=== PATIENT | male | born 1940 | race Caucasian/White ===

== ENCOUNTER → 2021-07-19 13:27 | Outpatient (BNVA) | payer MEDICARE, SELFPAY | PROVIDERS: Family Provider Family Medicine; PCP Family Medicine; Visit Provider Nurse Practitioner Family | DX: Z11.52 Encounter for screening for COVID-19 (principal); Z20.822 Contact with and (suspected) exposure to COVID-19 | CPT/HCPCS: 87635 ==

== ENCOUNTER 2021-12-09 00:37 | Emergency (ER) | payer MEDICARE, SELFPAY ==
[2021-12-09 00:44] VITALS: BP 133/75; PULSE 75; RESP 18; TEMP 37.1; O2SAT 98; BMI 27.4
--- NOTE | 2021-12-09 01:03 | W.ED.ABDPA2 ---
Documented by User: KEYA Medina 12/09/21 03:36 HPI - Abdominal Pain General: Chief Complaint: Abdominal Pain Stated Complaint: abd pains Time Seen by Provider: 12/09/21 01:02 History of Present Illness: 81-year-old male patient comes in today with complaints of abdominal pain and discomfort. Patient reports that he was riding his lawnmower this weekend and his abdomen started hurting afterwards. Since then he has had increasing pain and discomfort. Patient has a history of appendicitis with rupture when he was a child and since then he has had problems with an ileus/small bowel obstruction and/or diverticulosis. Patient comes in tonight for increased pain and discomfort. Patient did report his last bowel movement was today. Patient reports that he does pass gas. Patient states that his abdomen has become more distended though today and he is concerned that he is developing obstruction. Associated Symptoms: Reports nausea; Denies constipation, diarrhea, fever(s) and vomiting Review of Systems Const: Denies: fever(s) Card: Denies: chest pain Resp: Denies: dyspnea GI: Reports: abdominal pain and nausea; Denies: vomiting, diarrhea or constipation : Denies: difficulty urinating Skin/Breast: Denies: rash PFSH ED PFSH: Medical History History of irritable bowel syndrome HTN (hypertension) Surgical History History of appendectomy History of cataract extraction Family History Sister Cancer breast Social History Smoking and tobacco status: never smoked Second hand smoke exposure: No Alcohol intake: never Adopted: No Caregiver/support person: Yes Lives independently: Yes Household members: spouse Housing: House Marital status: service: No Current occupational status: retired Pets and animals: Yes Pets & animals: dog(s) History of recent travel: No Current gender identity: Male Special eri needs: No Physical Exam Const: COMMON NORMALS: alert HENMT: COMMON NORMALS: normocephalic HEAD & SCALP: normocephalic Resp: COMMON NORMALS: normal respiratory effort and clear to auscultation bilaterally AUSCULTATION: clear to auscultation bilaterally Cardio: COMMON NORMALS: regular rate RATE: regular rate GI: AUSCULTATION: Yes Hypoactive bowel sounds present PALPATION: Yes Tenderness to palpation present (GI) and Yes Other GI palpation findings present (Distended) PERCUSSION: tympanic to percussion : COMMON NORMALS: Yes no CVA tenderness BLADDER/KIDNEY EXAM: Yes no CVA tenderness Back/Pelvis: COMMON NORMALS: no CVA tenderness Extremity: COMMON NORMALS: no pedal edema Neuro: SENSORIUM/ORIENTATION: Yes alert Skin: COMMON NORMALS: no rashes or lesions noted GENERAL SKIN EXAM: no rashes or lesions noted Course Vital Signs: Vital signs: Vital Signs Temperature 98.2 F 12/09/21 05:50 Pulse Rate 90 12/09/21 05:50 Respiratory Rate 16 12/09/21 05:50 Blood Pressure 123/69 12/09/21 05:50 Pulse Oximetry 98 12/09/21 05:50 MDM - Abdominal Pain Medical Decision Making 81-year-old male patient comes in with abdominal pain and distention. Patient reports that he has a history of a ruptured appendix when he was young which caused a lot of adhesions to his bowel. He has had a couple episodes where his bowel has got twisted and he has had a NG tube placed. Patient was concerned that he may be developing this problem again. On exam patient's abdomen is distended bowel sounds were present. Patient did report a bowel movement today with passing of gas. Skin was warm and dry. Vital signs were normal. Differential diagnosis includes ileus, bowel obstruction, gastroenteritis, diverticulitis. CBC was unremarkable. CMP showed no significant change from prior exams. Patient was turned over to Dr. Dudley to await CT of the abdomen and pelvis report. Patient was given 1 L of IV fluids, 4 mg of ondansetron, and 4 mg of morphine and was resting well without any difficulty except for some mild desaturation while sleeping. Patient was placed on oxygen by nasal cannula to titrate to maintain saturation above 90%. Lab Data : 12/09/21 01:12 12/09/21 01:12 Labs/Radiology: Radiology Impressions Abdomen/Pelvis CT 12/09/21 01:10 IMPRESSION: Acute uncomplicated sigmoid diverticulitis. COMMENTS: Consistent with the [employer]'s Incidental Findings Committee white paper ([employer]iol 2018): Any incidental renal lesion less than 1 cm or classified as too small to characterize, or any incidental cystic renal lesion characterized as simple-appearing, is likely benign. No follow-up imaging is recommended for these lesions per consensus recommendations based on imaging criteria. Laboratory Results WBC 8.2 10^3/uL (4.0-10.0) 12/09/21 01:12 RBC 4.08 10^6/uL (4.1-5.3) L 12/09/21 01:12 Hgb 13.4 g/dL (11.7-16.6) 12/09/21 01:12 Hct 38.1 % (42.0-52.0) L 12/09/21 01:12 MCV 93.4 fl (80-94) 12/09/21 01:12 MCH 32.8 pg (28.0-34.0) 12/09/21 01:12 MCHC 35.2 g/dL (30.0-36.0) 12/09/21 01:12 RDW 12.1 % (12.1-15.1) 12/09/21 01:12 Plt Count 224 10^3/cmm (130-400) 12/09/21 01:12 MPV 9.7 fL (7.4-10.4) 12/09/21 01:12 Neut % (Auto) 70.2 % 12/09/21 01:12 Lymph % (Auto) 20.0 % 12/09/21 01:12 [place] % (Auto) 6.6 % 12/09/21 01:12 Eos % (Auto) 2.6 % 12/09/21 01:12 Baso % (Auto) 0.4 % 12/09/21 01:12 Neut # (Auto) 5.75 10^3/uL (1.8-7.7) 12/09/21 01:12 Lymph # (Auto) 1.6 10^3/uL (0.8-4.8) 12/09/21 01:12 [place] # (Auto) 0.5 10^3/uL (0.2-0.9) 12/09/21 01:12 Eos # (Auto) 0.2 10^3/uL (0.0-0.8) 12/09/21 01:12 Baso # (Auto) 0.0 10^3/uL (0.0-0.1) 12/09/21 01:12 Nucleated RBC % (auto) 0 % 12/09/21 01:12 Nucleated RBCs # 0.0 /100WBC 12/09/21 01:12 Sodium 140 mmol/L (136-145) 12/09/21 01:12 Potassium 3.8 mmol/L (3.5-5.1) 12/09/21 01:12 Chloride 104 mmol/L (98-107) 12/09/21 01:12 Carbon Dioxide 25 mmol/L (22-29) 12/09/21 01:12 Anion Gap 14.8 (5-19) 12/09/21 01:12 BUN 20 mg/dL (8-23) 12/09/21 01:12 Creatinine 1.3 mg/dL (0.7-1.2) H 12/09/21 01:12 GFR Calculation Not Reportable 12/09/21 01:12 Glucose 141 mg/dL (65-115) H 12/09/21 01:12 Calculated Osmolality 295 mOsm/kg (285-295) 12/09/21 01:12 Calcium 8.3 mg/dL (8.5-10.5) L 12/09/21 01:12 Total Bilirubin 0.4 mg/dL (0.15-1.2) 12/09/21 01:12 AST 14 U/L (0-40) 12/09/21 01:12 ALT 13 U/L (0-41) 12/09/21 01:12 Alkaline Phosphatase 81 IU/L (40-130) 12/09/21 01:12 Total Protein 6.7 g/dL (6.6-8.7) 12/09/21 01:12 Albumin 4.2 g/dL (3.5-5.2) 12/09/21 01:12 Globulin 2.5 g/dL (1.3-4.6) 12/09/21 01:12 Lipase 48 U/L (13-60) 12/09/21 01:12 Discharge Plan Discharge Patient Disposition: Home Clinical Impression: Abdominal pain, Diverticulitis Condition: Stable Prescriptions: New amoxicillin-pot clavulanate 875-125 mg tablet 1 tab PO BID Qty: 20 0RF ondansetron 4 mg tablet,disintegrating 4 mg PO Q8H PRN (Reason: nausea and vomiting) Qty: 15 0RF No Action albuterol sulfate [ProAir HFA] 90 mcg/actuation HFA aerosol inhaler 2 puff inhalation QID PRN (Reason: shortness of breath or wheezing) Qty: 8.5 3RF budesonide-formoterol [Symbicort] 160-4.5 mcg/actuation HFA aerosol inhaler 2 puff inhalation Q12H Qty: 10.2 3RF amlodipine 5 mg tablet 5 mg PO DAILY 0RF losartan 50 mg tablet 50 mg PO DAILY 0RF sertraline 25 mg tablet 25 mg PO DAILY 0RF dicyclomine 10 mg capsule 10 mg PO .prn 0RF pantoprazole 40 mg tablet,delayed release (DR/EC) 40 mg PO QDAY Qty: 30 5RF Discharge Orders: Discharge ED (Routine); Ordered 12/09/21 Ordered By: Cornelius Dudley Referrals: Jake Ochoa MD [Primary Care Provider] - Discharge Diet: Usual diet Discharge Activity: Increase activity as tolerated Patient Instructions: Diverticulitis (ED), Abdominal Pain (ED), Opioid Safety Activity Restrictions/Additional Instructions: Clear liquid diet until pain is resolved. Take medications as directed. Follow-up with primary care in 2 to 3 days for recheck. Return to emergency room for fever greater than 100.4, persistent vomiting, blood in vomit or stool. Sign Out Sign Out Data: Patient Sign Out occurred on 12/09/21 at 04:19. Patient's care was discussed, and care was transferred from to Cornelius Dudley MD. Coding Level of Care Code ED Cost Estimating Clerk for Chg Fwd Exam Comprehensive Documented by User: Cornelius Dudley MD 12/09/21 08:14 HPI - Abdominal Pain General: Chief Complaint: Abdominal Pain Stated Complaint: abd pains Time Seen by Provider: 12/09/21 01:02 [facility] ED PFSH: Medical History History of irritable bowel syndrome HTN (hypertension) Surgical History History of appendectomy History of cataract extraction Family History Sister Cancer breast Social History Smoking and tobacco status: never smoked Second hand smoke exposure: No Alcohol intake: never Adopted: No Caregiver/support person: Yes Lives independently: Yes Household members: spouse Housing: House Marital status: service: No Current occupational status: retired Pets and animals: Yes Pets & animals: dog(s) History of recent travel: No Current gender identity: Male Special eri needs: No Course Vital Signs: Vital signs: Vital Signs Temperature 98.2 F 12/09/21 05:50 Pulse Rate 90 12/09/21 05:50 Respiratory Rate 16 12/09/21 05:50 Blood Pressure 123/69 12/09/21 05:50 Pulse Oximetry 98 12/09/21 05:50 MDM - Abdominal Pain Medical Decision Making 81-year-old male patient comes in with abdominal pain and distention. Patient reports that he has a history of a ruptured appendix when he was young which caused a lot of adhesions to his bowel. He has had a couple episodes where his bowel has got twisted and he has had a NG tube placed. Patient was concerned that he may be developing this problem again. On exam patient's abdomen is distended bowel sounds were present. Patient did report a bowel movement today with passing of gas. Skin was warm and dry. Vital signs were normal. Differential diagnosis includes ileus, bowel obstruction, gastroenteritis, diverticulitis. CBC was unremarkable. CMP showed no significant change from prior exams. Patient was turned over to Dr. Dudley to await CT of the abdomen and pelvis report. Patient was given 1 L of IV fluids, 4 mg of ondansetron, and 4 mg of morphine and was resting well without any difficulty except for some mild desaturation while sleeping. Patient was placed on oxygen by nasal cannula to titrate to maintain saturation above 90%. Patient care discussed with Carlos So NP. I personally saw and evaluated the patient after I took over care. Reperformed smith portions of E/M. Overall patient feeling improved. CT scan results notable for simple diverticulitis. No evidence of sepsis or acute abdomen. Discussed possible disposition options including offering admission versus outpatient management with strict return precautions. Patient prefers outpatient management. He tolerated p.o. intake and first dose of antibiotics given here. I discussed prescriptions, follow-up plan, return precautions. Patient verbalized understanding felt safe for discharge. Cornelius Dudley MD Emergency Medicine Lab Data : 12/09/21 01:12 12/09/21 01:12 Labs/Radiology: Radiology Impressions Abdomen/Pelvis CT 12/09/21 01:10
--- NOTE | 2021-12-09 01:10 | CTR_ITS ---
PROCEDURE INFORMATION: Exam: CT Abdomen And Pelvis Without Contrast Exam date and time: 12/09/2021 1:33 AM Age: 81 years old Clinical indication: Nausea and vomiting; Abdominal pain; Generalized; Prior surgery; Surgery type: Appy; Patient HX: C/O diffuse abd pain with n/v. History of ibs. ; Additional info: Abd pain, probable sbo vs ileus TECHNIQUE: Imaging protocol: Computed tomography of the abdomen and pelvis without contrast. Radiation optimization: All CT scans at this facility use at least one of these dose optimization techniques: automated exposure control; mA and/or kV adjustment per patient size (includes targeted exams where dose is matched to clinical indication); or iterative reconstruction. COMPARISON: CR Chest 1 [place] [id number] 05/24/2019 5:15 PM RADIATION DOSE METRICS: Total DLP (mGy-cm): 1634.44 FINDINGS: Lungs: Calcified granulomas in the right lung. Liver: Subcentimeter low-density lesion in the left hepatic lobe is too small to characterize. Gallbladder and bile ducts: Normal. No calcified stones. No ductal dilation. Pancreas: Normal. No ductal dilation. Spleen: Calcified splenic granulomas. Adrenal glands: Normal. No mass. Kidneys and ureters: Coarse parenchymal calcification in the upper pole of the right kidney. Punctate nonobstructing left lower pole renal calculus. Bilateral renal cysts. No hydronephrosis. Stomach and bowel: No bowel obstruction. There are changes of acute sigmoid diverticulitis with some adjacent inflammation and tethering of a nearby small-bowel loop. Appendix: Appendectomy. Intraperitoneal space: Unremarkable. No free air. No significant fluid collection. Vasculature: Mild burden of atherosclerotic plaque in the abdominal aorta and branch vessels. No aneurysm. Lymph nodes: Unremarkable. No enlarged lymph nodes. Urinary bladder: Unremarkable as visualized. Reproductive: Prostatomegaly. Bones/joints: Unremarkable. No acute fracture. Soft tissues: Unremarkable. CT/CT abdomen pelvis wo con [id number] IMPRESSION: Acute uncomplicated sigmoid diverticulitis. COMMENTS: Consistent with the [employer]'s Incidental Findings Committee white paper ([employer] Radiol 2018): Any incidental renal lesion less than 1 cm or classified as too small to characterize, or any incidental cystic renal lesion characterized as simple-appearing, is likely benign. No follow-up imaging is recommended for these lesions per consensus recommendations based on imaging criteria.
[2021-12-09 01:19] VITALS: RESP 16
[2021-12-09] MEDS: morphine 4 mg/mL SDV 1 mL IVP (01:19)
[2021-12-09] MEDS: ondansetron 2 mg/ML SDV 2 mL 4 MG IVP ×2 (01:20→04:39)
[2021-12-09] MEDS: sodium chloride 0.9% 1,000 ML 999 ML IV (01:20)
[2021-12-09 01:27] LABS: Basophils % 0.4 %; Eosinophils # 0.2 10^3/uL (0.0-0.8); Eosinophils % 2.6 %; Hematocrit 38.1 % (42.0-52.0); Hemoglobin 13.4 g/dL (11.7-16.6); Lymphocytes # 1.6 10^3/uL (0.8-4.8); Mean Corpuscular HGB Conc 35.2 g/dL (30.0-36.0); Mean Corpuscular Hemoglobin 32.8 pg (28.0-34.0); Mean Corpuscular Volume 93.4 fl (80-94); Mean Platelet Volume 9.7 fL (7.4-10.4); Monocytes # 0.5 10^3/uL (0.2-0.9); Monocytes % 6.6 %; Neutrophils # 5.75 10^3/uL (1.8-7.7); Neutrophils % 70.2 %; Nucleated Red Blood Cells % 0 %; Platelet Count 224 10^3/cmm (130-400); Red Blood Count 4.08 10^6/uL (4.1-5.3); Red Cell Distribution Width 12.1 % (12.1-15.1); White Blood Count 8.2 10^3/uL (4.0-10.0)
[2021-12-09 01:44] LABS: Albumin Level 4.2 g/dL (3.5-5.2); Alkaline Phosphatase 81 IU/L (40-130); Anion Gap 14.8 (5-19); Aspartate Amino Transferase 14 U/L (0-40); Blood Urea Nitrogen 20 mg/dL (8-23); Calcium 8.3 mg/dL (8.5-10.5); Carbon Dioxide 25 mmol/L (22-29); Chloride 104 mmol/L (98-107); Globulin 2.5 g/dL (1.3-4.6); Glucose 141 mg/dL (65-115); Lipase 48 U/L (13-60); Osmolality Calculated 295 mOsm/kg (285-295); Potassium 3.8 mmol/L (3.5-5.1); Sodium 140 mmol/L (136-145); Total Bilirubin 0.4 mg/dL (0.15-1.2); Total Protein 6.7 g/dL (6.6-8.7)
[2021-12-09 01:55] LABS: Alanine Aminotransferase 13 U/L (0-41)
[2021-12-09 04:26] VITALS: BP 128/67; PULSE 81; RESP 16; O2SAT 95
[2021-12-09] MEDS: amoxicillin-clav 875-125 mg Tablet 1 TAB PO (04:39)
[2021-12-09 05:50] VITALS: BP 123/69; PULSE 90; RESP 16; TEMP 36.8; O2SAT 98
== END 2021-12-09 05:54 | disposition home or self-care (01) ==
PROVIDERS: Nurse Practitioner Family; Emergency Provider Emergency Medicine; PCP Family Medicine
DX: K57.32 Diverticulitis of large intestine without perforation or abscess without bleeding (principal); R11.0 Nausea; Z90.89 Acquired absence of other organs
CPT/HCPCS: 74176; 80053; 83690; 85025; 96361; 96374; 96375; 96376; 99284; J2270; J2405; J7030

== ENCOUNTER → 2022-08-15 12:31 | Outpatient (BNVA) | payer MEDICARE, SELFPAY | PROVIDERS: PCP Family Medicine; Visit Provider Family Medicine | DX: R10.9 Unspecified abdominal pain (principal); R19.00 Intra-abdominal and pelvic swelling, mass and lump, unspecified site; R60.9 Edema, unspecified; R35.0 Frequency of micturition; Z51.81 Encounter for therapeutic drug level monitoring; I10 Essential (primary) hypertension | CPT/HCPCS: 80053; 83880; 84153; 85025; 86141 ==

== ENCOUNTER 2022-12-18 14:43 | Emergency (ER) | payer MEDICARE, SELFPAY ==
[2022-12-18 14:49] VITALS: BP 139/75; PULSE 66; RESP 14; TEMP 36.4; O2SAT 98; BMI 27.4
[2022-12-18 15:57] LABS: Basophils % 0.4 %; Eosinophils # 0.3 10^3/uL (0.0-0.8); Eosinophils % 3.3 %; Hematocrit 43.1 % (42.0-52.0); Hemoglobin 14.4 g/dL (11.7-16.6); Lymphocytes # 1.6 10^3/uL (0.8-4.8); Lymphocytes % 19.4 %; Mean Corpuscular HGB Conc 33.4 g/dL (30.0-36.0); Mean Corpuscular Hemoglobin 32.2 pg (28.0-34.0); Mean Corpuscular Volume 96.4 fl (80-94); Mean Platelet Volume 9.6 fL (7.4-10.4); Monocytes # 0.7 10^3/uL (0.2-0.9); Monocytes % 8.4 %; Neutrophils # 5.51 10^3/uL (1.8-7.7); Neutrophils % 68.3 %; Nucleated Red Blood Cells % 0 %; Platelet Count 214 10^3/cmm (130-400); Red Blood Count 4.47 10^6/uL (4.1-5.3); Red Cell Distribution Width 12.5 % (12.1-15.1); White Blood Count 8.1 10^3/uL (4.0-10.0)
[2022-12-18 16:13] LABS: Add Urine Microscopic? YES; Bilirubin Urine 1+ (Negative); Blood Urine Neg (Negative); Glucose Urine UA Norm (Normal); Ketones Urine Negative (Negative); Leukocyte Esterase Urine Trace (Negative); Nitrate Urine Negative (Negative); Protein Urine Neg (Negative); Urine Appearance Clear (CLEAR); Urine Color Yellow (Yellow); Urobilinogen Urine Norm (Negative); pH Urine 5 (5-7)
[2022-12-18 16:14] LABS: Bacteria Urine TRACE /hpf; Mucus Urine 2+ /hpf; RBC Urine RARE /hpf (0-2); Squamous Epithelial Cell Urine 0-4 /hpf (0-5)
[2022-12-18 16:14] LABS: Lactic Sepsis W/Reflex 0.8 mmol/L (0.5-2.2)
[2022-12-18 16:15] LABS: Alanine Aminotransferase 9 U/L (0-41); Albumin Level 4.1 g/dL (3.5-5.2); Alkaline Phosphatase 77 U/L (40-130); Anion Gap 13.3 (5-19); Aspartate Amino Transferase 15 U/L (0-40); Blood Urea Nitrogen 19 mg/dL (8-23); Calcium 9.1 mg/dL (8.5-10.5); Carbon Dioxide 29 mmol/L (22-29); Chloride 101 mmol/L (98-107); Glucose 113 mg/dL (65-115); Lipase 35 U/L (13-60); Osmolality Calculated 291 mOsm/kg (285-295); Potassium 4.3 mmol/L (3.5-5.1); Sodium 139 mmol/L (136-145); Total Bilirubin 0.5 mg/dL (0.15-1.2); Total Protein 7.1 g/dL (6.6-8.7)
--- NOTE | 2022-12-18 16:59 | ED_ITS ---
HPI - Abdominal Pain General: Chief Complaint: Abdominal Pain Stated Complaint: abd pain Time Seen by Provider: 12/18/22 16:51 History of Present Illness: 82-year-old male patient comes in today with abdominal pain that is similar to his prior episode of diverticulitis except its in the right upper quadrant. Patient reports 2 episodes of diarrhea. Patient denies any fever or chills. Patient appears nontoxic. Patient has a history of surgical removal of appendix in his childhood, lung disease, hypertension, irritable bowel syndrome, gastritis/GERD, and depression. Associated Symptoms: Reports diarrhea and nausea; Denies fever(s) Review of Systems General: Reports: 10 or more systems reviewed and unremarkable except in HPI and below Const: Denies: fever(s) Eyes: Denies: change in vision ENMT: Denies: throat pain Card: Denies: chest pain Resp: Denies: dyspnea GI: Reports: abdominal pain, nausea and diarrhea : Denies: difficulty urinating Musc: Denies: neck pain or back pain Skin/Breast: Denies: rash PFSH ED PFSH: Medical History History of irritable bowel syndrome HTN (hypertension) Surgical History History of appendectomy History of cataract extraction Family History Sister Cancer breast Social History Smoking and tobacco status: never smoked Second hand smoke exposure: No Alcohol intake: never Substance/Drug Use: never Adopted: No Caregiver/support person: Yes Lives independently: Yes Household members: spouse Housing: House Marital status: service: No Current occupational status: retired Pets and animals: Yes Pets & animals: dog(s) Current gender identity: Male Special eri needs: No Physical Exam Const: COMMON NORMALS: alert HENMT: COMMON NORMALS: normocephalic HEAD & SCALP: normocephalic Neck/C-Spine: COMMON NORMALS: full ROM Resp: COMMON NORMALS: normal respiratory effort and clear to auscultation bilaterally AUSCULTATION: clear to auscultation bilaterally Cardio: COMMON NORMALS: regular rate and regular rhythm RATE: regular rate RHYTHM: regular rhythm GI: INSPECTION: Yes abdominal distension and Yes central obesity PALPATION: Yes Tenderness to palpation present (GI) Details: RUQ PERCUSSION: tympanic to percussion : COMMON NORMALS: Yes no CVA tenderness BLADDER/KIDNEY EXAM: Yes no CVA tenderness Back/Pelvis: COMMON NORMALS: no CVA tenderness Extremity: COMMON NORMALS: no pedal edema Neuro: SENSORIUM/ORIENTATION: Yes alert Skin: COMMON NORMALS: turgor normal GENERAL SKIN EXAM: turgor normal Course Vital Signs: Vital signs: Vital Signs Temperature 97.6 F 12/18/22 14:49 Pulse Rate 66 12/18/22 14:49 Respiratory Rate 14 12/18/22 14:49 Blood Pressure 139/75 12/18/22 14:49 Pulse Oximetry 98 12/18/22 14:49 Oxygen Delivery Me thod Room Air 12/18/22 14:49 MDM - Abdominal Pain Medical Decision Making 82-year-old male patient comes in today with abdominal pain and discomfort in the right upper quadrant for 10 days. Patient appears nontoxic. On exam patient has a mildly distended abdomen with tenderness in the right upper quadrant positive Maya sign. Vital signs are normal. Differential diagnosis includes but not limited to pancreatitis, gallbladder disease, constipation, diverticulitis, colitis, bowel obstruction. Laboratory values were unremarkable, except for some increased white blood cells in the urine. Laboratory values were unremarkable. CT of the abdomen pelvis noted a possible small bowel obstruction and colitis of the sigmoid colon. Patient reports that he continues to pass gas. I discussed with patient's abnormalities on the CT scan and recommendations for treatment including fluids, antibiotics, and follow-up or hospital admission. Patient wanted to try home therapy with clear liquid to full liquid diet along with antibiotics. Patient is belching and passing gas and diarrhea and believes his symptoms can be managed at home. At this time I agree with patient he does not look nontoxic and can monitor at home with need to return for worsening symptoms such as fever, blood in vomit or stool, or inability to hold fluids down. Lab Data 12/18/22 15:20 12/18/22 15:20 Labs/Radiology: Radiology Impressions Abdomen/Pelvis CT 12/18/22 17:05 IMPRESSION: 1. Small-bowel obstruction. 2. Question of nonspecific colitis of the sigmoid colon. COMMENTS: Consistent with the [employer]'s Incidental Findings Committee white paper ([employer] Am [employer] Radiol 2018): Any incidental renal lesion less than 1 cm or classified as too small to characterize, or any incidental cystic renal lesion characterized as simple-appearing, is likely benign. No follow-up imaging is recommended for these lesions per consensus recommendations based on imaging criteria. ADDENDUM: 12/18/22 8209 Addendum: THIS REPORT CONTAINS FINDINGS THAT MAY BE CRITICAL TO PATIENT CARE. The findings were verbally communicated via telephone conference with NEAL HANNAH at 6:19 PM CDT on 12/18/2022. The findings were acknowledged and understood. Inadvertently omitted from the initial report is the following: There is moderate thickening of the urinary bladder wall with some adjacent stranding, findings worrisome for cystitis. Please correlate with the clinical findings. There is mild enlargement of the prostate and prostate calcifications also noted. These findings were also communicated at the time of the phone call. Additional impression: Possible cystitis Laboratory Results WBC 8.1 10^3/uL (4.0-10.0) 12/18/22 15:20 RBC 4.47 10^6/uL (4.1-5.3) 12/18/22 15:20 Hgb 14.4 g/dL (11.7-16.6) 12/18/22 15:20 Hct 43.1 % (42.0-52.0) 12/18/22 15:20 MCV 96.4 fl (80-94) H 12/18/22 15:20 MCH 32.2 pg (28.0-34.0) 12/18/22 15:20 MCHC 33.4 g/dL (30.0-36.0) 12/18/22 15:20 RDW 12.5 % (12.1-15.1) 12/18/22 15:20 Plt Count 214 10^3/cmm (130-400) 12/18/22 15:20 MPV 9.6 fL (7.4-10.4) 12/18/22 15:20 Neut % (Auto) 68.3 % 12/18/22 15:20 Lymph % (Auto) 19.4 % 12/18/22 15:20 [place] % (Auto) 8.4 % 12/18/22 15:20 Eos % (Auto) 3.3 % 12/18/22 15:20 Baso % (Auto) 0.4 % 12/18/22 15:20 Neut # (Auto) 5.51 10^3/uL (1.8-7.7) 12/18/22 15:20 Lymph # (Auto) 1.6 10^3/uL (0.8-4.8) 12/18/22 15:20 [place] # (Auto) 0.7 10^3/uL (0.2-0.9) 12/18/22 15:20 Eos # (Auto) 0.3 10^3/uL (0.0-0.8) 12/18/22 15:20 Baso # (Auto) 0.0 10^3/uL (0.0-0.1) 12/18/22 15:20 Nucleated RBC % (auto) 0 % 12/18/22 15:20 Nucleated RBCs # 0.0 /100WBC 12/18/22 15:20 Sodium 139 mmol/L (136-145) 12/18/22 15:20 Potassium 4.3 mmol/L (3.5-5.1) 12/18/22 15:20 Chloride 101 mmol/L (98-107) 12/18/22 15:20 Carbon Dioxide 29 mmol/L (22-29) 12/18/22 15:20 Anion Gap 13.3 (5-19) 12/18/22 15:20 BUN 19 mg/dL (8-23) 12/18/22 15:20 Creatinine 1.2 mg/dL (0.7-1.2) 12/18/22 15:20 GFR Calculation Not Reportable 12/18/22 15:20 Glucose 113 mg/dL (65-115) 12/18/22 15:20 Calculated Osmolality 291 mOsm/kg (285-295) 12/18/22 15:20 Lactic Acid 0.8 mmol/L (0.5-2.2) 12/18/22 15:20 Calcium 9.1 mg/dL (8.5-10.5) 12/18/22 15:20 Total Bilirubin 0.5 mg/dL (0.15-1.2) 12/18/22 15:20 AST 15 U/L (0-40) 12/18/22 15:20 ALT 9 U/L (0-41) 12/18/22 15:20 Alkaline Phosphatase 77 U/L (40-130) 12/18/22 15:20 Total Protein 7.1 g/dL (6.6-8.7) 12/18/22 15:20 Albumin 4.1 g/dL (3.5-5.2) 12/18/22 15:20 Globulin 3.0 g/dL (1.3-4.6) 12/18/22 15:20 Lipase 35 U/L (13-60) 12/18/22 15:20 Urine Color Yellow (Yellow) 12/18/22 15:30 Urine Appearance Clear (CLEAR) 12/18/22 15:30 Urine pH 5 (5-7) 12/18/22 15:30 Ur Specific [place] 1.020 (1.005-1.030) 12/18/22 15:30 Urine Protein Neg (Negative) 12/18/22 15:30 Urine Glucose (UA) Norm (Normal) 12/18/22 15:30 Urine Ketones Negative (Negative) 12/18/22 15:30 Urine Blood Neg (Negative) 12/18/22 15:30 Urine Nitrate Negative (Negative) 12/18/22 15:30 Urine Bilirubin 1+ (Negative) H 12/18/22 15:30 Urine Urobilinogen Norm mg/dL (Negative) 12/18/22 15:30 Ur Leukocyte Esterase Trace (Negative) H 12/18/22 15:30 Urine RBC Rare /hpf (0-2) 12/18/22 15:30 Urine WBC 5-10 /hpf (0-5) H 12/18/22 15:30 Ur Squamous Epith Cells 0-4 /hpf (0-5) H 12/18/22 15:30 Ur Transition Epith Cell /hpf 12/18/22 15:30 Amorphous Sediment Not Reportable 12/18/22 15:30 Urine Bacteria Trace /hpf (NONE) 12/18/22 15:30 Urine Mucus 2+ /hpf 12/18/22 15:30 Discharge Plan Discharge Patient Disposition: Home Clinical Impression: Colitis, Partial obstruction of small intestine Condition: Stable Prescriptions: New amoxicillin-pot clavulanate 875-125 mg tablet 1 tab PO BID Qty: 14 0RF metronidazole 250 mg tablet 250 mg PO TID Qty: 15 0RF No Action albuterol sulfate [ProAir HFA] 90 mcg/actuation HFA aerosol inhaler 2 puff inhalation QID PRN (Reason: shortness of breath or wheezing) Qty: 8.5 3RF budesonide-formoterol [Symbicort] 160-4.5 mcg/actuation HFA aerosol inhaler 2 puff inhalation Q12H Qty: 10.2 3RF losartan 50 mg tablet 50 mg PO DAILY ondansetron 4 mg tablet,disintegrating 4 mg PO Q8H PRN (Reason: nausea and vomiting) Qty: 30 2RF pantoprazole 40 mg tablet,delayed release (DR/EC) 40 mg PO QDAY Qty: 90 3RF dicyclomine 10 mg capsule 10 mg PO TID PRN (Reason: IBS) Qty: 60 6RF amlodipine 5 mg tablet See Rx Instructions .ROUTE .COMPLEX Qty: 90 3RF Dose Instruction: TAKE 1 TABLET BY MOUTH EVERY DAY Rx Instructions: TAKE 1 TABLET BY MOUTH EVERY DAY sertraline 25 mg tablet See Rx Instructions .ROUTE .COMPLEX Qty: 90 3RF Dose Instruction: TAKE 1 TABLET BY MOUTH EVERY DAY FOR mood AND anxiety Rx Instructions: TAKE 1 TABLET BY MOUTH EVERY DAY FOR mood AND anxiety Discharge Orders: Discharge ED (Routine); Ordered 12/18/22 Ordered By: Neal Hannah Referrals: Jake Ochoa MD [Primary Care Provider] - Discharge Diet: Usual diet Discharge Activity: Increase activity as tolerated Patient Instructions: Ileus (ED) Activity Restrictions/Additional Instructions: Home and rest. Drink plenty of fluids. Stick with a liquid diet until abdominal pain resolves. Take antibiotics as directed. Follow-up with primary care as needed. Return to emergency room for worsening symptoms such as inability to hold fluids down, fever greater than 100.4, blood in vomit or stool. Coding Level of Care Code ED Linseed Cake Trimmer for Jp Larson
--- NOTE | 2022-12-18 17:05 | CTR_ITS ---
PROCEDURE INFORMATION: Exam: CT Abdomen And Pelvis With Contrast Exam date and time: 12/18/2022 5:14 PM Age: 82 years old Clinical indication: Bloating; Prior surgery; Surgery date: 6+ months; Surgery type: Appy; Additional info: Ruq pain x 10 days, diarrhea TECHNIQUE: Imaging protocol: Computed tomography of the abdomen and pelvis with contrast. Radiation optimization: All CT scans at this facility use at least one of these dose optimization techniques: automated exposure control; mA and/or kV adjustment per patient size (includes targeted exams where dose is matched to clinical indication); or iterative reconstruction. Contrast material: OMNI PAQUE 350; Contrast volume: 100 ml; Contrast route: INTRAVENOUS (IV); REPORTING DATA: Count of CT and Cardiac NM exams in prior 12 months: This patient has received 0 known CTs and 0 known cardiac nuclear medicine studies in the 12 months prior to the current study. COMPARISON: CT abdomen pelvis wo con [id number] 12/09/2021 1:33 AM RADIATION DOSE METRICS: Total DLP (mGy-cm): 676.78 FINDINGS: Lungs: There is a small calcified granuloma at the right lung base. Liver: There is an 8 mm sized benign-appearing hypodensity left lobe of the liver too small to definitively characterize by CT scanning but unchanged from 07/16/2014 and highly likely benign. No further evaluation necessary. Gallbladder and bile ducts: The gallbladder is normal. Pancreas: Normal. No ductal dilation. Spleen: The spleen demonstrates punctate calcifications, consistent with remote granulomatous organism exposure. Adrenal glands: The adrenal glands are normal. Kidneys and ureters: There is a 4.6 cm sized benign-appearing simple cyst upper pole left kidney, 1.3 cm sized benign simple cortical cyst anterior mid left kidney and 2 tiny cortical hypodensities too small to definitively characterize by CT scanning but likely benign cyst. There is also a 3 cm sized benign-appearing simple cyst in the posterior mid right kidney and a 6 mm benign cyst as well as a too small to definitively characterize by CT scanning but likely benign cyst in the lower pole of the right kidney. No further evaluation is necessary. There is no evidence of hydronephrosis. There is no evidence of renal or ureteral calcifications. There is a large coarse benign-appearing calcification in the cortex posterior mid right kidney not significantly changed since 05/16/2014. Stomach and bowel: Moderate diverticulosis is present in the distal colon. There is nonspecific thickening of the proximal sigmoid colon and findings could represent some nonspecific colitis. There are fluid and air-filled dilated loops of small bowel in the mid abdomen. The distal ileum is nondilated. The exact point of transition is not identified but this may be in the right mid abdomen. These findings are consistent with small bowel obstruction. Appendix: Not identified Intraperitoneal space: There is no evidence of free intraperitoneal fluid. There is no free intraperitoneal air. Vasculature: Unremarkable. No abdominal aortic aneurysm. Lymph nodes: There is mild haziness in the mesentery some mild prominent mesenteric nodes which could represent some mesenteric panniculitis not significantly changed from the previous examination. Urinary bladder: Unremarkable as visualized. Reproductive: Unremarkable as visualized. Bones/joints: There are degenerative changes in the lower lumbar spine at L5-S1 not significantly changed. No acute fracture is identified. Soft tissues: There are small bilateral inguinal hernias containing only fat. CT/CT abdomen pelvis w con* [id number] IMPRESSION: 1. Small-bowel obstruction. 2. Question of nonspecific colitis of the sigmoid colon. COMMENTS: Consistent with the [employer]'s Incidental Findings Committee white paper (J Am [employer] Radiol 2018): Any incidental renal lesion less than 1 cm or classified as too small to characterize, or any incidental cystic renal lesion characterized as simple-appearing, is likely benign. No follow-up imaging is recommended for these lesions per consensus recommendations based on imaging criteria.
[2022-12-18] MEDS: iohexol 350 mg/mL 500 mL Btl (per mL) IV (17:09)
[2022-12-18] MEDS: metroNIDAZOLE 500 MG Tablet 250 MG PO (18:34)
[2022-12-18] MEDS: amoxicillin-clav 875-125 mg Tablet 1 TAB PO (18:34)
[2022-12-18 18:42] VITALS: BP 132/96; PULSE 73; RESP 16; O2SAT 95
== END 2022-12-18 18:45 | disposition home or self-care (01) ==
PROVIDERS: Physician Assistant; Emergency Provider Nurse Practitioner Family; PCP Family Medicine
DX: K52.9 Noninfective gastroenteritis and colitis, unspecified (principal); K56.600 Partial intestinal obstruction, unspecified as to cause; I10 Essential (primary) hypertension
CPT/HCPCS: 36415; 74177; 80053; 81001; 83605; 83690; 85025; 99284; Q9967

== ENCOUNTER → 2023-10-02 09:50 | Outpatient (BNVA) | payer MEDICARE, SELFPAY | PROVIDERS: PCP Family Medicine; Visit Provider Family Medicine | DX: Z51.81 Encounter for therapeutic drug level monitoring (principal); I10 Essential (primary) hypertension; R35.0 Frequency of micturition; Z13.220 Encounter for screening for lipoid disorders | CPT/HCPCS: 80053; 80061; 84153; 85025 ==

== ENCOUNTER 2024-01-06 11:02 | Emergency (ER) | payer MEDICARE, SELFPAY ==
--- NOTE | 2024-01-06 11:47 | ECG_ITS ---
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 Measurements Intervals [place] Rate: 71 P: 64 AK: 175 QRS: 35 QRSD: 78 T: 60 QT: 354 QTc: 386 Interpretive Statements SINUS RHYTHM LOW QRS VOLTAGE [QRS DEFLECTION < 0.5/1.0 mV IN LIMB/CHEST LEADS] Compared to ECG 05/24/2019 23:10:03 Sinus bradycardia no longer present Electronically Signed On 01-06-2024 15:24:36 CDT by Brian Sauceda M.D. [id number]
--- NOTE | 2024-01-06 11:48 | XRR_ITS ---
PROCEDURE INFORMATION: Exam: XR Chest Exam date and time: 01/06/2024 12:55 PM Age: 83 years old Clinical indication: Patient HX: Weakness; Chills TECHNIQUE: Imaging protocol: Radiologic exam of the chest. Views: 1 view. COMPARISON: CR XR chest 1V [id number] 09/02/2018 17:15 FINDINGS: Lungs: The chest is hypoventilatory. Stable old calcified granulomas in both lungs. Pleural spaces: Unremarkable. No pleural effusion. No pneumothorax. Heart/Mediastinum: Mild cardiomegaly. Bones/joints: Unremarkable. XR/XR chest 1V portable [id number] IMPRESSION: 1. No radiographic evidence of acute cardiopulmonary disease. 2. Old calcified granulomas in each lung. 3. Mild cardiomegaly.
[2024-01-06 11:54] VITALS: BP 137/78; PULSE 70; RESP 21; TEMP 36.9; O2SAT 97; BMI 27.4
--- NOTE | 2024-01-06 12:11 | W.ED.WEAKNES ---
HPI - Weakness General: Chief complaint: Weakness Stated complaint: weakness/chills Time Seen by Provider: 01/06/24 11:16 History of Present Illness: 83-year-old man with a history of hypertension who presents to the emergency room with weakness and chills. 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 He says he thinks he overdid it and since then for about 3 days now he has been having chills and generalized weakness. No cough. No altered mental status. No focal motor deficits. No chest pain. No abdominal pain. Review of Systems Narrative: Constitutional symptoms: Negative except as documented in HPI. Skin symptoms: Negative except as documented in HPI. Eye symptoms: Negative except as documented in HPI. ENMT symptoms: Negative except as documented in HPI. Respiratory symptoms: Negative except as documented in HPI. Cardiovascular symptoms: Negative except as documented in HPI. Gastrointestinal symptoms: Negative except as documented in HPI. Genitourinary symptoms: Negative except as documented in HPI. Musculoskeletal symptoms: Negative except as documented in HPI. Neurologic symptoms: Negative except as documented in HPI. Psychiatric symptoms: Negative except as documented in HPI. Endocrine symptoms: Negative except as documented in HPI. FORMERLY [facility], 1928–1983 ED PFSH: Medical History History of irritable bowel syndrome HTN (hypertension) Surgical History History of appendectomy History of cataract extraction Family History Sister Cancer breast Social History Smoking and tobacco/nicotine status: never used tobacco/nicotine Second hand smoke exposure: No Alcohol intake: never Substance/Drug Use: never Adopted: No Caregiver/support person: Yes Lives independently: Yes Household members: spouse Housing: House Marital status: service: No Current occupational status: retired Pets and animals: Yes Pets & animals: dog(s) Current gender identity: Male Special eri needs: No Physical Exam Narrative: EXAM NARRATIVE: General: Alert, no acute distress. Skin: Warm, dry. Head: Normocephalic, atraumatic. Neck: Supple, trachea midline. Eye: Extraocular movements are intact. Ears, nose, mouth and throat: Tacky oral mucosa Cardiovascular: Regular, Normal peripheral perfusion. Respiratory: Lungs are clear to auscultation, respirations are non-labored, breath sounds are equal, Symmetrical chest wall expansion. Gastrointestinal: Soft, Nontender, Non distended, Normal bowel sounds. Musculoskeletal: Normal ROM, no deformity. Neurological: Alert and oriented, No focal neurological deficit observed. Psychiatric: Cooperative, appropriate mood & affect. Course Vital Signs: Vital signs: Vital Signs Temperature 98.4 F 01/06/24 11:54 Pulse Rate 72 01/06/24 14:04 Respiratory Rate 21 H 01/06/24 11:54 Blood Pressure 134/79 01/06/24 14:04 Pulse Oximetry 97 01/06/24 14:04 Oxygen Delivery Me thod Room Air 01/06/24 14:04 MDM - Weakness Medical Decision Making Medical decision making: Differential diagnosis for patient presenting with generalized weakness including but not limited to and based on the above HPI, review of systems and physical exam: Sepsis. Dehydration. Renal failure. Electrolyte abnormalities. Anemia. Congestive heart failure. Hypotension. Coronary syndrome. Hepatitis. Cirrhosis. Infections such as pneumonia, urinary tract infection, Tick bourne illness, Cellulitis, Viral infections including influenza and Covid-19. Workup: labwork and lab/exam driven imaging ordered to evaluate, rule in and rule out above pathologies. EKG: Time 1158. Rate 71. Normal sinus rhythm, No ST-T changes, no ectopy, normal [place] & QRS intervals, This was reviewed and interpreted by myself the ER physician at 12:01 Chest x-ray: No acute process. No infiltrate. No pneumothorax. No cardiomegaly. This was reviewed and interpreted by myself the ER physician. Lab Review: Laboratory results were reviewed and interpreted by myself the emergency room physician. Lab work is consistent with Rickettsia or L. Gagan a tick illnesses. He has a low white count. Platelets are only 73 and are normally in the upper 200s. His sodium is a bit low at 135. He reports multiple tick bites over the last few weeks. He had several that he had to pull off that were embedded. His malaise, fevers are consistent with tick illness. Treating with doxycycline. I reviewed the patient's medical record. Reexamination: I discussed my findings with the patient and that I was going to treat him for tick illness. His said that she had just been thinking about that and was going mention it to me. He has no increased work of breathing. No altered mental status. No focal motor deficits. Assessment and plan: Tick illness Dehydration ?IV normal saline bolus and IV doxycycline in the emergency room. - Discharged home - Discussed findings and plan with patient. Answered any questions. - All laboratory values were reviewed and interpreted personally by myself, the ER physician - All imaging was reviewed and interpreted personally by myself, the ER physician. - Evaluation and treatment of this problem were appropriate in the emergency setting Lab Data 01/06/24 12:16 01/06/24 12:16 Laboratory Results WBC 4.12 10^3/uL (3.29-11.43) 01/06/24 12:16 RBC 4.49 10^6/uL (3.85-5.65) 01/06/24 12:16 Hgb 14.30 g/dL (11.27-16.99) 01/06/24 12:16 Hct 41.9 % (37-53) 01/06/24 12:16 MCV 93.3 fl (82-101) 01/06/24 12:16 MCH 31.8 pg (27-33) 01/06/24 12:16 MCHC 34.1 g/dL (30-55) 01/06/24 12:16 RDW 12.2 % (12.1-15.1) 01/06/24 12:16 Plt Count 73 10^3/cmm (157-399) L 01/06/24 12:16 MPV 9.6 fL (7.4-10.4) 01/06/24 12:16 Neut % (Auto) 80.4 % 01/06/24 12:16 Lymph % (Auto) 10.4 % 01/06/24 12:16 [place] % (Auto) 8.5 % 01/06/24 12:16 Eos % (Auto) 0.0 % 01/06/24 12:16 Baso % (Auto) 0.2 % 01/06/24 12:16 Neut # (Auto) 3.31 10^3/uL (1.8-7.7) 01/06/24 12:16 Lymph # (Auto) 0.4 10^3/uL (0.8-4.8) L 01/06/24 12:16 [place] # (Auto) 0.4 10^3/uL (0.2-0.9) 01/06/24 12:16 Eos # (Auto) 0.0 10^3/uL (0.0-0.8) 01/06/24 12:16 Baso # (Auto) 0.0 10^3/uL (0.0-0.1) 01/06/24 12:16 Nucleated RBC % (auto) 0 % 01/06/24 12:16 Nucleated RBCs # 0.0 /100WBC 01/06/24 12:16 Sodium 135 mmol/L (136-145) L 01/06/24 12:16 Potassium 4.1 mmol/L (3.5-5.1) 01/06/24 12:16 Chloride 98 mmol/L (98-107) 01/06/24 12:16 Carbon Dioxide 27 mmol/L (22-29) 01/06/24 12:16 Anion Gap 14.1 (5-19) 01/06/24 12:16 BUN 12 mg/dL (8-23) 01/06/24 12:16 Creatinine 1.2 mg/dL (0.7-1.2) 01/06/24 12:16 GFR Calculation Not Reportable 01/06/24 12:16 Glucose 99 mg/dL (65-115) 01/06/24 12:16 Calculated Osmolality 280 mOsm/kg (285-295) L 01/06/24 12:16 Lactic Acid 1.1 mmol/L (0.5-2.2) 01/06/24 12:16 Calcium 8.6 mg/dL (8.5-10.5) 01/06/24 12:16 Total Bilirubin 0.7 mg/dL (0.15-1.2) 01/06/24 12:16 AST 35 U/L (0-40) 01/06/24 12:16 ALT 23 U/L (0-41) 01/06/24 12:16 Alkaline Phosphatase 86 U/L (40-130) 01/06/24 12:16 C-Reactive Protein 70.1 mg/L (0.0-4.9) H 01/06/24 12:16 Total Protein 6.9 g/dL (6.6-8.7) 01/06/24 12:16 Albumin 3.9 g/dL (3.5-5.2) 01/06/24 12:16 Globulin 3.0 g/dL (1.3-4.6) 01/06/24 12:16 Urine Color Yellow (Yellow) 01/06/24 12:32 Urine Appearance Clear (CLEAR) 01/06/24 12:32 Urine pH 5 (5-7) 01/06/24 12:32 Ur Specific [place] 1.015 (1.005-1.030) 01/06/24 12:32 Urine Protein Trace (Negative) 01/06/24 12:32 Urine Glucose (UA) Norm (Normal) 01/06/24 12:32 Urine Ketones Negative (Negative) 01/06/24 12:32 Urine Blood 2+ (Negative) H 01/06/24 12:32 Urine Nitrate Negative (Negative) 01/06/24 12:32 Urine Bilirubin Neg (Negative) 01/06/24 12:32 Urine Urobilinogen Norm mg/dL (Negative) 01/06/24 12:32 Ur Leukocyte Esterase Negative (Negative) 01/06/24 12:32 Urine RBC 5-10 /hpf (0-2) H 01/06/24 12:32 Urine WBC None /hpf (0-5) 01/06/24 12:32 Ur Squamous Epith Cells 0-4 /hpf (0-5) H 01/06/24 12:32 Amorphous Sediment Not Reportable 01/06/24 12:32 Urine Bacteria Trace /hpf (NONE) 01/06/24 12:32 Hyaline Casts 0-4 /lpf H 01/06/24 12:32 All radiology interpretation(s) finalized by discharge Discharge Plan Discharge Patient Disposition: Home Clinical Impression: Tick borne fever, Dehydration Condition: Stable Prescriptions: New doxycycline hyclate 100 mg capsule 100 mg PO BID 7 Days Qty: 14 0RF No Action azithromycin 250 mg tablet See Rx Instructions PO .COMPLEX Qty: 6 0RF Rx Instructions: For 250 mg dose pack: take 500 mg today (day 1), then 250 mg for 4 days (days 2-5) PO dicyclomine 10 mg capsule 10 mg PO TID PRN (Reason: IBS) Qty: 60 6RF losartan 50 mg tablet See Rx Instructions .ROUTE .COMPLEX Qty: 90 3RF Dose Instruction: Take 1 tablet by mouth once daily Rx Instructions: Take 1 tablet by mouth once daily pantoprazole 40 mg tablet,delayed release (DR/EC) 40 mg PO QDAY Qty: 90 3RF sertraline 25 mg tablet See Rx Instructions .ROUTE .COMPLEX Qty: 90 3RF Dose Instruction: TAKE 1 TABLET BY MOUTH EVERY DAY FOR mood AND anxiety Rx Instructions: TAKE 1 TABLET BY MOUTH EVERY DAY FOR mood AND anxiety amlodipine 5 mg tablet See Rx Instructions .ROUTE .COMPLEX Qty: 90 3RF Dose Instruction: TAKE 1 TABLET BY MOUTH EVERY DAY Rx Instructions: TAKE 1 TABLET BY MOUTH EVERY DAY Discharge Orders: Discharge ED (Routine); Ordered 01/06/24 Ordered By: Paula Rogel Referrals: Jake Ochoa MD [Primary Care Provider] - Discharge Diet: Advance as tolerated Discharge Activity: Resume usual activity Patient Instructions: Tick Bite (ED) Activity Restrictions/Additional Instructions: Thank you for choosing [facility] for your healthcare needs today. Please realize this is an emergency room and that we are providing you with a medical screening exam and this may not be complete and all inclusive of all the testing and or work up that you may need to determine your ailment or severity of your illness. You have been screened and evaluated and felt safe for discharge. Health conditions do change or evolve sometimes and as such it is important that you follow up with your Primary Doctor to be re checked, 3-5 days is a general good time frame for follow up. You are always welcome to return to the ED for re assessment if your symptoms are worsening or you have new concerns Coding Level of Care Code ED Ruffling Hemmer Automatic for Jp Larson
[2024-01-06 12:24] LABS: Basophils % 0.2 %; Hematocrit 41.9 % (37-53); Lymphocytes # 0.4 10^3/uL (0.8-4.8); Lymphocytes % 10.4 %; Mean Corpuscular HGB Conc 34.1 g/dL (30-55); Mean Corpuscular Hemoglobin 31.8 pg (27-33); Mean Corpuscular Volume 93.3 fl (82-101); Mean Platelet Volume 9.6 fL (7.4-10.4); Monocytes # 0.4 10^3/uL (0.2-0.9); Monocytes % 8.5 %; Neutrophils # 3.31 10^3/uL (1.8-7.7); Neutrophils % 80.4 %; Nucleated Red Blood Cells % 0 %; Platelet Count 73 10^3/cmm (157-399); Red Blood Count 4.49 10^6/uL (3.85-5.65); Red Cell Distribution Width 12.2 % (12.1-15.1); White Blood Count 4.12 10^3/uL (3.29-11.43)
[2024-01-06 12:41] LABS: Lactic Sepsis W/Reflex 1.1 mmol/L (0.5-2.2)
[2024-01-06 12:42] LABS: Alanine Aminotransferase 23 U/L (0-41); Albumin Level 3.9 g/dL (3.5-5.2); Alkaline Phosphatase 86 U/L (40-130); Anion Gap 14.1 (5-19); Aspartate Amino Transferase 35 U/L (0-40); Blood Urea Nitrogen 12 mg/dL (8-23); C Reactive Protein 70.1 mg/L (0.0-4.9); Calcium 8.6 mg/dL (8.5-10.5); Carbon Dioxide 27 mmol/L (22-29); Chloride 98 mmol/L (98-107); Glucose 99 mg/dL (65-115); Osmolality Calculated 280 mOsm/kg (285-295); Potassium 4.1 mmol/L (3.5-5.1); Sodium 135 mmol/L (136-145); Total Bilirubin 0.7 mg/dL (0.15-1.2); Total Protein 6.9 g/dL (6.6-8.7)
[2024-01-06] MEDS: sodium chloride 0.9% 1,000 ML 999 ML IV (12:44)
[2024-01-06 13:26] LABS: Add Urine Culture? No; Bacteria Urine TRACE /hpf; Bilirubin Urine Neg (Negative); Blood Urine 2+ (Negative); Glucose Urine UA Norm (Normal); Hyaline Casts Urine 0-4 /lpf; Ketones Urine Negative (Negative); Leukocyte Esterase Urine Negative (Negative); Nitrate Urine Negative (Negative); Protein Urine Trace (Negative); Specific Gravity, Urine 1.015 (1.005-1.030); Squamous Epithelial Cell Urine 0-4 /hpf (0-5); Urine Appearance Clear (CLEAR); Urine Color Yellow (Yellow); Urobilinogen Urine Norm (Negative); pH Urine 5 (5-7)
[2024-01-06 14:04] VITALS: BP 134/79; PULSE 72; O2SAT 97
[2024-01-06] MEDS: doxycycline 100 MG in sodium chloride 0.9% (plus) 100 ML IV (14:21)
[2024-01-06 14:52] LABS: Adenovirus Not Detected (NOT DETECT); Chlamydia Pneumoniae Not Detected (NOT DETECT); Coronavirus 229E,HKU1,NL63,OC4 Not Detected (NOT DETECT); Human Metapneumovirus Not Detected (NOT DETECT); Human Rhinovirus/Enterovirus Not Detected (NOT DETECT); Influenza A Not Detected (NOT DETECT); Influenza A H1 Not Detected (NOT DETECT); Influenza A H1-2009 Not Detected (NOT DETECT); Influenza A H3 Not Detected (NOT DETECT); Influenza B Not Detected (NOT DETECT); Mycoplasma Pneumoniae Not Detected (NOT DETECT); Parainfluenza Virus Type 1 Not Detected (NOT DETECT); Parainfluenza Virus Type 2 Not Detected (NOT DETECT); Parainfluenza Virus Type 3 Not Detected (NOT DETECT); Parainfluenza Virus Type 4 Not Detected (NOT DETECT); Respiratory Syncytial Virus A Not Detected (NOT DETECT); Respiratory Syncytial Virus B Not Detected (NOT DETECT); SARS-COV-2 Not Detected (NOT DETECT)
== END 2024-01-06 15:31 | disposition home or self-care (01) ==
PROVIDERS: Emergency Provider Emergency Medicine; PCP Family Medicine
DX: A93.8 Other specified arthropod-borne viral fevers (principal); E86.0 Dehydration; I10 Essential (primary) hypertension
CPT/HCPCS: 36415; 71045; 80053; 81001; 83605; 85025; 86140; 87040; 87486; 87581; 87633; 93005; 96365; 99285; J3490; J7030

== ENCOUNTER → 2024-01-16 09:58 | Outpatient (BNVA) | payer MEDICARE, SELFPAY | PROVIDERS: PCP Family Medicine; Visit Provider Family Medicine | DX: Z51.81 Encounter for therapeutic drug level monitoring (principal); A93.8 Other specified arthropod-borne viral fevers | CPT/HCPCS: 80053; 85025; 86141 ==

== ENCOUNTER → 2024-08-26 10:07 | Outpatient (BNVA) | payer MEDICARE, SELFPAY | PROVIDERS: PCP Family Medicine; Visit Provider Family Medicine | DX: Z51.81 Encounter for therapeutic drug level monitoring (principal); E53.8 Deficiency of other specified B group vitamins; E03.9 Hypothyroidism, unspecified; N40.0 Benign prostatic hyperplasia without lower urinary tract symptoms; Z13.6 Encounter for screening for cardiovascular disorders; Z13.220 Encounter for screening for lipoid disorders; E55.9 Vitamin D deficiency, unspecified | CPT/HCPCS: 80053; 80061; 82306; 82607; 84153; 84443; 85025 ==

== ENCOUNTER → 2024-09-09 09:10 | Outpatient (BNVA) | payer MEDICARE, SELFPAY | PROVIDERS: Visit Provider Nurse Practitioner Family | DX: R05.1 Acute cough (principal) | CPT/HCPCS: 71046 ==

== ENCOUNTER → 2025-02-11 11:20 | Outpatient (BNVA) | payer MEDICARE, SELFPAY | PROVIDERS: PCP Family Medicine; Visit Provider Nurse Practitioner Family | DX: Z91.89 Other specified personal risk factors, not elsewhere classified (principal) | CPT/HCPCS: 80053; 85025 ==

== ENCOUNTER → 2025-02-18 12:42 | Outpatient (BNVA) | payer MEDICARE, SELFPAY | PROVIDERS: PCP Nurse Practitioner Family; Visit Provider Nurse Practitioner Family | DX: R52 Pain, unspecified (principal); N40.0 Benign prostatic hyperplasia without lower urinary tract symptoms; R97.20 Elevated prostate specific antigen [PSA] | CPT/HCPCS: 81000; 84153 ==

== ENCOUNTER → 2025-03-12 11:13 | Outpatient (BNVA) | payer MEDICARE, SELFPAY | PROVIDERS: PCP Family Medicine; Visit Provider Family Medicine | DX: E87.5 Hyperkalemia (principal) | CPT/HCPCS: 80048 ==

== ENCOUNTER → 2025-05-27 12:58 | Outpatient (BNVA) | payer MEDICARE, SELFPAY | PROVIDERS: PCP Family Medicine; Visit Provider Surgery | DX: L72.3 Sebaceous cyst (principal) | CPT/HCPCS: 99203 ==